=== PATIENT | female | born 1995 | race Caucasian/White ===

== ENCOUNTER 2020-09-04 12:58 | Emergency (ER) | payer SELFPAY ==
[~2020-09-04] VITALS: Ht 162.6 cm; Wt 58.0 kg
[2020-09-04 17:10] VITALS: BP 115/65
== END 2020-09-04 17:52 | disposition home or self-care (01) ==
LOC: ER 13:15
DX: T46.6X1A Poisoning by antihyperlipidemic and antiarteriosclerotic drugs, accidental (unintentional), initial encounter (principal); R41.82 Altered mental status, unspecified; R03.0 Elevated blood-pressure reading, without diagnosis of hypertension; Y92.89 Other specified places as the place of occurrence of the external cause
CPT/HCPCS: 70450; 71045; 82962; 93005; 99285; Z7610